=== PATIENT | female | born 1975 | race African-American/Black ===

== ENCOUNTER 2021-02-03 13:10 | Inpatient (IN) | payer OTHER ==
[2021-02-03 16:07] VITALS: BMI 22.7
[2021-02-03] MEDS ORDERED: MAGNESIUM HYDROX 2400MG/30ML ORAL SUSPENSION 30 ML CUP PO PRN (19:33)
[2021-02-03] MEDS ORDERED: MAG HYDROX/AL HYDROX/SIMETH 30 ML UNIT-DOSE CUP PO PRN (19:33)
[2021-02-03] MEDS ORDERED: hydrOXYzine PAMOATE 25 MG CAPSULE (FP) PO PRN (19:33)
[2021-02-03] MEDS ORDERED: ACETAMINOPHEN 325 MG TABLET (FP) PO PRN ×2 (19:33)
[2021-02-03] MEDS ORDERED: MAGNESIUM CITRATE 300 ML BOTTLE PO PRN (19:33)
[2021-02-03] MEDS ORDERED: BISMUTH SUBSALICYLATE 524 MG/30 ML PO PRN (19:33)
[2021-02-03] MEDS ORDERED: MENTHOL/PHENOL 1 EACH UD MM PRN (19:33)
[2021-02-03] MEDS ORDERED: ONDANSETRON *ODT* 4 MG TABLET SL PRN (19:33)
[2021-02-03] MEDS ORDERED: METHOCARBAMOL 500 MG TABLET PO PRN (19:33)
[2021-02-03] MEDS ORDERED: IBUPROFEN 400 MG TABLET (FP) PO PRN (19:33)
[2021-02-03] MEDS ORDERED: diazePAM 5 MG TABLET PO ONE (19:35)
[2021-02-03] MEDS ORDERED: METOPROLOL TARTRATE 25 MG TABLET (FP) PO ONE (19:35)
[2021-02-03] MEDS ORDERED: METOPROLOL TARTRATE 50 MG TABLET (FP) PO ONE (20:00)
[2021-02-03] MEDS: THIAMINE HCL 100 MG TABLET (FP) PO SCH (21:28)
[2021-02-03] MEDS: MELATONIN 5 MG TABLETS PO SCH (21:28)
[2021-02-03] MEDS: diazePAM 5 MG TABLET PO SCH (22:33)
[2021-02-04] MEDS: diazePAM 5 MG TABLET PO SCH ×4 (06:37→22:13)
[2021-02-04] MEDS: PANTOPRAZOLE 20 MG TABLET PO SCH (10:11)
[2021-02-04] MEDS: LISINOPRIL 20 MG TABLET PO SCH (10:11)
[2021-02-04] MEDS: HYDROCHLOROTHIAZIDE 25 MG TABLET (FP) PO SCH (10:12)
[2021-02-04] MEDS: PRENATAL VITAMINS W/ FOLIC ACID TABLET (FP) PO SCH (10:12)
[2021-02-04 12:43] LABS: HEMATOCRIT 37.2 % (32.4-45.2); MCH 38.2 pg (25.7-33.7); MEAN CELL VOLUME 109.3 fl (80-96); MEAN PLT VOLUME 10.2 fl (7.5-11.1); PLATELET COUNT 209 10^3/uL (134-434); RBC 3.41 M/mm3 (3.60-5.2); RDW 13.6 % (11.6-15.6)
[2021-02-04 13:10] LABS: ALBUMIN 3.8 g/dl (3.4-5.0); BLOOD UREA NITROGEN 14.4 mg/dL (7-18); CALCIUM 9.6 mg/dL (8.5-10.1)
[2021-02-04 13:13] LABS: CREATININE 0.8 mg/dL (0.55-1.3)
[2021-02-04 13:14] LABS: BILIRUBIN,TOTAL 3.2 mg/dL (0.2-1); TOT PROT 7.6 g/dl (6.4-8.2)
[2021-02-04] MEDS: diazePAM 5 MG TABLET PO PRN (15:35)
[2021-02-04] MEDS: THIAMINE HCL 100 MG TABLET (FP) PO SCH (22:13)
[2021-02-04] MEDS: MELATONIN 5 MG TABLETS PO SCH (22:13)
[2021-02-05] MEDS: diazePAM 5 MG TABLET PO SCH ×3 (05:20→22:12)
[2021-02-05] MEDS: PRENATAL VITAMINS W/ FOLIC ACID TABLET (FP) PO SCH (10:11)
[2021-02-05] MEDS: HYDROCHLOROTHIAZIDE 25 MG TABLET (FP) PO SCH (10:11)
[2021-02-05] MEDS: PANTOPRAZOLE 20 MG TABLET PO SCH (10:11)
[2021-02-05] MEDS: LISINOPRIL 20 MG TABLET PO SCH (10:11)
[2021-02-05] MEDS: diazePAM 5 MG TABLET PO PRN ×2 (10:12→18:15)
[2021-02-05] MEDS ORDERED: NICOTINE 10 MG CARTRIDGE (INHALER) IH PRN (11:51)
[2021-02-05] MEDS: THIAMINE HCL 100 MG TABLET (FP) PO SCH (22:12)
[2021-02-05] MEDS: MELATONIN 5 MG TABLETS PO SCH (22:13)
[2021-02-06] MEDS ORDERED: MASKS NR ONE (05:37)
[2021-02-06] MEDS ORDERED: diazePAM 5 MG TABLET PO SCH (06:00)
[2021-02-06 08:33] LABS: HEMATOCRIT 36.5 % (32.4-45.2); HEMOGLOBIN 12.6 GM/dL (10.7-15.3); MCH 38.1 pg (25.7-33.7); MCHC 34.7 g/dl (32.0-36.0); MEAN CELL VOLUME 109.9 fl (80-96); MEAN PLT VOLUME 10.7 fl (7.5-11.1); PLATELET COUNT 171 10^3/uL (134-434); RBC 3.32 M/mm3 (3.60-5.2); RDW 13.4 % (11.6-15.6); WHITE BLOOD COUNT 6.2 K/mm3 (4.0-10.0)
[2021-02-06 09:33] LABS: CALCIUM 9.7 mg/dL (8.5-10.1)
[2021-02-06 09:34] LABS: ALBUMIN 3.5 g/dl (3.4-5.0); BLOOD UREA NITROGEN 11.4 mg/dL (7-18)
[2021-02-06 09:37] LABS: CREATININE 0.5 mg/dL (0.55-1.3)
[2021-02-06 09:39] LABS: TOT PROT 7.2 g/dl (6.4-8.2)
[2021-02-06 09:47] VITALS: BP 100/77; PULSE 116; TEMP 96.8
[2021-02-06 09:53] LABS: BILIRUBIN,TOTAL 2.6 mg/dL (0.2-1)
[2021-02-07] MEDS ORDERED: diazePAM 5 MG TABLET PO ONE (06:00)
== END 2021-02-06 09:22 | disposition left against medical advice (07) | DRG 770 ==
LOC: YASAS 13:10 → Y3N 19:33
PROVIDERS: ADMIT Allergy & Immunology; ATTEND Allergy & Immunology
PROC: HZ2ZZZZ Detoxification Services for Substance Abuse Treatment (ICD-10-PCS; principal; 2021-02-03)
DX: F10.230 Alcohol dependence with withdrawal, uncomplicated (principal); F17.210 Nicotine dependence, cigarettes, uncomplicated; I10 Essential (primary) hypertension; R74.8 Abnormal levels of other serum enzymes
CPT/HCPCS: 36415; 80053; 81025; 85027; 86780; C9803; U0003; U0005

== ENCOUNTER 2021-04-03 21:59 | Inpatient (IN) | payer OTHER ==
[2021-04-03 18:10] VITALS: BMI 24.3
[2021-04-03] MEDS ORDERED: MAGNESIUM CITRATE 300 ML BOTTLE PO PRN (23:43)
[2021-04-03] MEDS ORDERED: guaiFENesin 200 MG/10 ML 10 ML UNIT-DOSE CUPS PO PRN (23:43)
[2021-04-03] MEDS ORDERED: NICOTINE 10 MG CARTRIDGE (INHALER) IH PRN (23:43)
[2021-04-03] MEDS ORDERED: IBUPROFEN 400 MG TABLET (FP) PO PRN (23:43)
[2021-04-03] MEDS ORDERED: LOPERAMIDE HCL 2 MG CAPSULE PO PRN (23:43)
[2021-04-03] MEDS ORDERED: NICOTINE 7 MG/24 HOURS TOPICAL PATCH TD PRN (23:43)
[2021-04-03] MEDS ORDERED: P-EPHED 60MG/TRIPROLIDI 2.5MG TABLET PO PRN (23:43)
[2021-04-03] MEDS ORDERED: MAGNESIUM HYDROX 2400MG/30ML ORAL SUSPENSION 30 ML CUP PO PRN (23:43)
[2021-04-03] MEDS ORDERED: ACETAMINOPHEN 325 MG TABLET (FP) PO PRN (23:43)
[2021-04-03] MEDS ORDERED: MAG HYDROX/AL HYDROX/SIMETH 30 ML UNIT-DOSE CUP PO PRN (23:43)
[2021-04-04] MEDS ORDERED: GABAPENTIN 300 MG CAPSULE PO PRN (00:07)
[2021-04-04] MEDS ORDERED: cloNIDine HCL 0.1 MG TABLET PO ONE (07:48)
[2021-04-04] MEDS: PRENATAL VITAMINS W/ FOLIC ACID TABLET (FP) PO SCH (10:33)
[2021-04-04] MEDS: LISINOPRIL 20 MG TABLET PO SCH (10:34)
[2021-04-04] MEDS: PANTOPRAZOLE 20 MG TABLET PO SCH (10:34)
[2021-04-04] MEDS: HYDROCHLOROTHIAZIDE 25 MG TABLET (FP) PO SCH (10:35)
[2021-04-04] MEDS ORDERED: FLU VACC QS2021-22(6MOS UP)/PF 60 MCG/0.5 ML SYRINGE IM ONE (13:00)
[2021-04-04 13:01] LABS: SYPHILIS W/ RPR CONF NON-REACTIVE (NONREACTIVE)
[2021-04-04] MEDS: GABAPENTIN 300 MG CAPSULE PO SCH (21:10)
[2021-04-04] MEDS: MELATONIN 5 MG TABLETS PO PRN (21:10)
[2021-04-04] MEDS: THIAMINE HCL 100 MG TABLET (FP) PO SCH (21:10)
[2021-04-05] MEDS: GABAPENTIN 300 MG CAPSULE PO SCH ×3 (06:50→21:30)
[2021-04-05] MEDS: PRENATAL VITAMINS W/ FOLIC ACID TABLET (FP) PO SCH (10:31)
[2021-04-05] MEDS: HYDROCHLOROTHIAZIDE 25 MG TABLET (FP) PO SCH (10:31)
[2021-04-05] MEDS: PANTOPRAZOLE 20 MG TABLET PO SCH (10:31)
[2021-04-05] MEDS: LISINOPRIL 20 MG TABLET PO SCH (10:31)
[2021-04-05] MEDS: THIAMINE HCL 100 MG TABLET (FP) PO SCH (21:30)
[2021-04-05] MEDS: MELATONIN 5 MG TABLETS PO PRN (21:30)
[2021-04-06] MEDS: GABAPENTIN 300 MG CAPSULE PO SCH ×3 (06:11→21:17)
[2021-04-06] MEDS: LISINOPRIL 20 MG TABLET PO SCH (10:26)
[2021-04-06] MEDS: HYDROCHLOROTHIAZIDE 25 MG TABLET (FP) PO SCH (10:26)
[2021-04-06] MEDS: PANTOPRAZOLE 20 MG TABLET PO SCH (10:26)
[2021-04-06] MEDS: PRENATAL VITAMINS W/ FOLIC ACID TABLET (FP) PO SCH (10:26)
[2021-04-06] MEDS: HYDROCORTISONE 1% TOPICAL CREAM 30 GM TUBE TP SCH ×2 (13:21→21:15)
[2021-04-06] MEDS: THIAMINE HCL 100 MG TABLET (FP) PO SCH (21:17)
[2021-04-06] MEDS: MELATONIN 5 MG TABLETS PO PRN (21:18)
[2021-04-07] MEDS: GABAPENTIN 300 MG CAPSULE PO SCH ×3 (06:42→21:08)
[2021-04-07 07:06] LABS: EPI CELLS 8 /uL (0-25.1); HYALINE CASTS 0 /uL (0-3.1); URINE APPEARANCE CLEAR; URINE BACTERIA 112 /uL (0-1359); URINE BILIRUBIN NEGATIVE (NEGATIVE); URINE COLOR YELLOW; URINE GLUCOSE (UA) NEGATIVE (NEGATIVE); URINE KETONE NEGATIVE (NEGATIVE); URINE LEUK ESTERASE 1+ (NEGATIVE); URINE NITRITE NEGATIVE (NEGATIVE); URINE PROTEIN NEGATIVE (NEGATIVE); URINE RBC 0 /uL (0-23.9); URINE UROBILINOGEN 0.2 mg/dL (0.2-1.0); URINE WBC 10 /uL (0-25.8)
[2021-04-07 10:35] LABS: BASO % 2.5 % (0-2.0); EOS % 2.5 % (0-4.5); HEMATOCRIT 32.9 % (32.4-45.2); HEMOGLOBIN 11.5 GM/dL (10.7-15.3); LYMPH % 21.8 % (8-40); MCH 37.7 pg (25.7-33.7); MCHC 35.1 g/dl (32.0-36.0); MEAN CELL VOLUME 107.3 fl (80-96); MEAN PLT VOLUME 9.3 fl (7.5-11.1); NEUT % 60.2 % (42.8-82.8); PLATELET COUNT 558 10^3/uL (134-434); RBC 3.06 M/mm3 (3.60-5.2); RDW 14.4 % (11.6-15.6); WHITE BLOOD COUNT 7.7 K/mm3 (4.0-10.0)
[2021-04-07] MEDS: HYDROCHLOROTHIAZIDE 25 MG TABLET (FP) PO SCH (10:43)
[2021-04-07] MEDS: HYDROCORTISONE 1% TOPICAL CREAM 30 GM TUBE TP SCH ×2 (10:44→21:08)
[2021-04-07] MEDS: PRENATAL VITAMINS W/ FOLIC ACID TABLET (FP) PO SCH (10:44)
[2021-04-07] MEDS: LISINOPRIL 20 MG TABLET PO SCH (10:44)
[2021-04-07] MEDS: PANTOPRAZOLE 20 MG TABLET PO SCH (10:45)
[2021-04-07 11:38] LABS: CALCIUM 9.5 mg/dL (8.5-10.1)
[2021-04-07 11:39] LABS: ALBUMIN 3.4 g/dl (3.4-5.0); BLOOD UREA NITROGEN 11.5 mg/dL (7-18)
[2021-04-07 11:42] LABS: CREATININE 0.5 mg/dL (0.55-1.3)
[2021-04-07 11:44] LABS: BILIRUBIN,TOTAL 1.3 mg/dL (0.2-1)
[2021-04-07 12:05] LABS: ANISOCYTOSIS 1+; MACROCYTOSIS 1+
[2021-04-07] MEDS: THIAMINE HCL 100 MG TABLET (FP) PO SCH (21:08)
[2021-04-07] MEDS: MELATONIN 5 MG TABLETS PO PRN (21:10)
[2021-04-08] MEDS: GABAPENTIN 300 MG CAPSULE PO SCH ×3 (06:26→21:08)
[2021-04-08] MEDS: HYDROCHLOROTHIAZIDE 25 MG TABLET (FP) PO SCH (10:44)
[2021-04-08] MEDS: HYDROCORTISONE 1% TOPICAL CREAM 30 GM TUBE TP SCH ×2 (10:44→21:08)
[2021-04-08] MEDS: PRENATAL VITAMINS W/ FOLIC ACID TABLET (FP) PO SCH (10:44)
[2021-04-08] MEDS: PANTOPRAZOLE 20 MG TABLET PO SCH (10:44)
[2021-04-08] MEDS: LISINOPRIL 20 MG TABLET PO SCH (10:44)
[2021-04-08] MEDS: THIAMINE HCL 100 MG TABLET (FP) PO SCH (21:08)
[2021-04-09] MEDS: GABAPENTIN 300 MG CAPSULE PO SCH ×3 (06:22→21:54)
[2021-04-09] MEDS: PRENATAL VITAMINS W/ FOLIC ACID TABLET (FP) PO SCH (10:50)
[2021-04-09] MEDS: PANTOPRAZOLE 20 MG TABLET PO SCH (10:51)
[2021-04-09] MEDS: HYDROCORTISONE 1% TOPICAL CREAM 30 GM TUBE TP SCH ×2 (10:51→21:58)
[2021-04-09] MEDS: LISINOPRIL 20 MG TABLET PO SCH (10:51)
[2021-04-09] MEDS: HYDROCHLOROTHIAZIDE 25 MG TABLET (FP) PO SCH (10:52)
[2021-04-09] MEDS: MELATONIN 5 MG TABLETS PO PRN (21:52)
[2021-04-09] MEDS: hydrOXYzine PAMOATE 25 MG CAPSULE (FP) PO PRN (21:54)
[2021-04-09] MEDS: THIAMINE HCL 100 MG TABLET (FP) PO SCH (21:54)
[2021-04-09] MEDS: traZODone HCL 50 MG TABLET (FP) PO SCH (21:54)
[2021-04-10] MEDS: GABAPENTIN 300 MG CAPSULE PO SCH ×3 (06:27→21:09)
[2021-04-10] MEDS: hydrOXYzine PAMOATE 25 MG CAPSULE (FP) PO PRN ×3 (06:29→21:09)
[2021-04-10] MEDS: HYDROCORTISONE 1% TOPICAL CREAM 30 GM TUBE TP SCH ×2 (10:18→21:10)
[2021-04-10] MEDS: PANTOPRAZOLE 20 MG TABLET PO SCH (10:18)
[2021-04-10] MEDS: HYDROCHLOROTHIAZIDE 25 MG TABLET (FP) PO SCH (10:18)
[2021-04-10] MEDS: PRENATAL VITAMINS W/ FOLIC ACID TABLET (FP) PO SCH (10:18)
[2021-04-10] MEDS: LISINOPRIL 20 MG TABLET PO SCH (10:18)
[2021-04-10 11:33] LABS: BASO % 1.2 % (0-2.0); HEMATOCRIT 33.3 % (32.4-45.2); HEMOGLOBIN 11.3 GM/dL (10.7-15.3); LYMPH % 27.9 % (8-40); MCH 37.1 pg (25.7-33.7); MCHC 33.9 g/dl (32.0-36.0); MEAN CELL VOLUME 109.6 fl (80-96); MEAN PLT VOLUME 9.2 fl (7.5-11.1); MONO % 9.8 % (3.8-10.2); NEUT % 58.1 % (42.8-82.8); PLATELET COUNT 666 10^3/uL (134-434); RBC 3.04 M/mm3 (3.60-5.2); RDW 14.7 % (11.6-15.6); WHITE BLOOD COUNT 8.7 K/mm3 (4.0-10.0)
[2021-04-10 11:50] LABS: ALBUMIN 3.5 g/dl (3.4-5.0); BILIRUBIN,DIRECT 0.4 mg/dL (0.0-0.2)
[2021-04-10 11:52] LABS: BILIRUBIN,TOTAL 0.6 mg/dL (0.2-1)
[2021-04-10] MEDS ORDERED: PT OWN MED DRAWER 7, Y5N ONE (12:27)
[2021-04-10 12:45] LABS: ANISOCYTOSIS 3+; MACROCYTOSIS 3+; PLATELET ESTIMATE INCREASED
[2021-04-10] MEDS: traZODone HCL 50 MG TABLET (FP) PO SCH (21:09)
[2021-04-10] MEDS: THIAMINE HCL 100 MG TABLET (FP) PO SCH (21:09)
[2021-04-10] MEDS: MELATONIN 5 MG TABLETS PO PRN (21:09)
[2021-04-11] MEDS: hydrOXYzine PAMOATE 25 MG CAPSULE (FP) PO PRN ×3 (06:51→21:44)
[2021-04-11] MEDS: GABAPENTIN 300 MG CAPSULE PO SCH ×3 (06:51→21:44)
[2021-04-11] MEDS: HYDROCHLOROTHIAZIDE 25 MG TABLET (FP) PO SCH (10:35)
[2021-04-11] MEDS: PANTOPRAZOLE 20 MG TABLET PO SCH (10:35)
[2021-04-11] MEDS: PRENATAL VITAMINS W/ FOLIC ACID TABLET (FP) PO SCH (10:35)
[2021-04-11] MEDS: LISINOPRIL 20 MG TABLET PO SCH (10:35)
[2021-04-11] MEDS: HYDROCORTISONE 1% TOPICAL CREAM 30 GM TUBE TP SCH ×2 (10:36→21:45)
[2021-04-11 15:19] LABS: PH,URINE 7.5 (5.0-8.0); URINE APPEARANCE CLEAR; URINE BILIRUBIN NEGATIVE (NEGATIVE); URINE COLOR YELLOW; URINE GLUCOSE (UA) NEGATIVE (NEGATIVE); URINE KETONE NEGATIVE (NEGATIVE); URINE LEUK ESTERASE NEGATIVE (NEGATIVE); URINE NITRITE NEGATIVE (NEGATIVE); URINE PROTEIN NEGATIVE (NEGATIVE)
[2021-04-11] MEDS: THIAMINE HCL 100 MG TABLET (FP) PO SCH (21:44)
[2021-04-11] MEDS: traZODone HCL 50 MG TABLET (FP) PO SCH (21:44)
[2021-04-11] MEDS: MELATONIN 5 MG TABLETS PO PRN (21:47)
[2021-04-12] MEDS: hydrOXYzine PAMOATE 25 MG CAPSULE (FP) PO PRN ×3 (06:33→21:46)
[2021-04-12] MEDS: GABAPENTIN 300 MG CAPSULE PO SCH ×3 (06:33→21:44)
[2021-04-12] MEDS: PANTOPRAZOLE 20 MG TABLET PO SCH (10:16)
[2021-04-12] MEDS: HYDROCORTISONE 1% TOPICAL CREAM 30 GM TUBE TP SCH ×2 (10:16→21:46)
[2021-04-12] MEDS: LISINOPRIL 20 MG TABLET PO SCH (10:16)
[2021-04-12] MEDS: PRENATAL VITAMINS W/ FOLIC ACID TABLET (FP) PO SCH (10:16)
[2021-04-12] MEDS: HYDROCHLOROTHIAZIDE 25 MG TABLET (FP) PO SCH (10:16)
[2021-04-12] MEDS: MELATONIN 5 MG TABLETS PO PRN (21:44)
[2021-04-12] MEDS: THIAMINE HCL 100 MG TABLET (FP) PO SCH (21:44)
[2021-04-12] MEDS: traZODone HCL 50 MG TABLET (FP) PO SCH (21:44)
[2021-04-13] MEDS: GABAPENTIN 300 MG CAPSULE PO SCH ×3 (06:22→21:51)
[2021-04-13] MEDS: hydrOXYzine PAMOATE 25 MG CAPSULE (FP) PO PRN ×3 (06:22→21:51)
[2021-04-13] MEDS: HYDROCORTISONE 1% TOPICAL CREAM 30 GM TUBE TP SCH (09:46)
[2021-04-13] MEDS: PANTOPRAZOLE 20 MG TABLET PO SCH (09:47)
[2021-04-13] MEDS: PRENATAL VITAMINS W/ FOLIC ACID TABLET (FP) PO SCH (09:47)
[2021-04-13] MEDS ORDERED: COLLOIDAL OATMEAL 1 BAR EACH TP PRN (11:59)
[2021-04-13] MEDS: HYDROCHLOROTHIAZIDE 25 MG TABLET (FP) PO SCH (12:28)
[2021-04-13] MEDS: LISINOPRIL 20 MG TABLET PO SCH (12:29)
[2021-04-13] MEDS: MINERAL OIL/PETROLAT/WATER TOPICAL CREAM 113 GM JAR TP SCH (16:01)
[2021-04-13] MEDS: traZODone HCL 50 MG TABLET (FP) PO SCH (21:51)
[2021-04-13] MEDS: THIAMINE HCL 100 MG TABLET (FP) PO SCH (21:51)
[2021-04-13] MEDS: MELATONIN 5 MG TABLETS PO PRN (21:52)
[2021-04-14] MEDS: hydrOXYzine PAMOATE 25 MG CAPSULE (FP) PO PRN ×3 (06:21→21:32)
[2021-04-14] MEDS: GABAPENTIN 300 MG CAPSULE PO SCH ×3 (06:21→21:32)
[2021-04-14] MEDS: LISINOPRIL 20 MG TABLET PO SCH (09:58)
[2021-04-14] MEDS: PRENATAL VITAMINS W/ FOLIC ACID TABLET (FP) PO SCH (09:58)
[2021-04-14] MEDS: PANTOPRAZOLE 20 MG TABLET PO SCH (09:58)
[2021-04-14] MEDS: MINERAL OIL/PETROLAT/WATER TOPICAL CREAM 113 GM JAR TP SCH (09:58)
[2021-04-14] MEDS: HYDROCHLOROTHIAZIDE 25 MG TABLET (FP) PO SCH (09:59)
[2021-04-14] MEDS: THIAMINE HCL 100 MG TABLET (FP) PO SCH (21:31)
[2021-04-14] MEDS: traZODone HCL 50 MG TABLET (FP) PO SCH (21:31)
[2021-04-14] MEDS: MELATONIN 5 MG TABLETS PO PRN (21:32)
[2021-04-15] MEDS: GABAPENTIN 300 MG CAPSULE PO SCH ×3 (06:19→21:44)
[2021-04-15] MEDS: hydrOXYzine PAMOATE 25 MG CAPSULE (FP) PO PRN ×3 (06:19→21:46)
[2021-04-15] MEDS: PANTOPRAZOLE 20 MG TABLET PO SCH (10:34)
[2021-04-15] MEDS: LISINOPRIL 20 MG TABLET PO SCH (10:34)
[2021-04-15] MEDS: HYDROCHLOROTHIAZIDE 25 MG TABLET (FP) PO SCH (10:34)
[2021-04-15] MEDS: MINERAL OIL/PETROLAT/WATER TOPICAL CREAM 113 GM JAR TP SCH (10:34)
[2021-04-15] MEDS: PRENATAL VITAMINS W/ FOLIC ACID TABLET (FP) PO SCH (10:34)
[2021-04-15] MEDS: THIAMINE HCL 100 MG TABLET (FP) PO SCH (21:44)
[2021-04-15] MEDS: MELATONIN 5 MG TABLETS PO PRN (21:45)
[2021-04-15] MEDS: traZODone HCL 100 MG TABLET (FP) PO SCH (21:45)
[2021-04-16] MEDS: hydrOXYzine PAMOATE 25 MG CAPSULE (FP) PO PRN ×3 (07:10→21:27)
[2021-04-16] MEDS: GABAPENTIN 300 MG CAPSULE PO SCH ×3 (07:10→21:25)
[2021-04-16] MEDS: PRENATAL VITAMINS W/ FOLIC ACID TABLET (FP) PO SCH (10:15)
[2021-04-16] MEDS: LISINOPRIL 20 MG TABLET PO SCH (10:15)
[2021-04-16] MEDS: HYDROCHLOROTHIAZIDE 25 MG TABLET (FP) PO SCH (10:15)
[2021-04-16] MEDS: PANTOPRAZOLE 20 MG TABLET PO SCH (10:15)
[2021-04-16] MEDS: MINERAL OIL/PETROLAT/WATER TOPICAL CREAM 113 GM JAR TP SCH (10:16)
[2021-04-16] MEDS: traZODone HCL 100 MG TABLET (FP) PO SCH (21:25)
[2021-04-16] MEDS: THIAMINE HCL 100 MG TABLET (FP) PO SCH (21:25)
[2021-04-16] MEDS: MELATONIN 5 MG TABLETS PO PRN (21:27)
[2021-04-17] MEDS: hydrOXYzine PAMOATE 25 MG CAPSULE (FP) PO PRN (06:23)
[2021-04-17] MEDS: GABAPENTIN 300 MG CAPSULE PO SCH (06:23)
[2021-04-17 07:35] VITALS: TEMP 97.4
[2021-04-17] MEDS: PANTOPRAZOLE 20 MG TABLET PO SCH (09:43)
[2021-04-17] MEDS: PRENATAL VITAMINS W/ FOLIC ACID TABLET (FP) PO SCH (09:43)
[2021-04-17] MEDS: HYDROCHLOROTHIAZIDE 25 MG TABLET (FP) PO SCH (09:43)
[2021-04-17] MEDS: LISINOPRIL 20 MG TABLET PO SCH (09:43)
[2021-04-17] MEDS: MINERAL OIL/PETROLAT/WATER TOPICAL CREAM 113 GM JAR TP SCH (09:44)
[2021-04-17 10:58] VITALS: BP 126/86; PULSE 104
== END 2021-04-17 10:30 | disposition home or self-care (01) | DRG 772 ==
LOC: YASAS 21:59 → Y5N 23:46
PROVIDERS: ADMIT Allergy & Immunology; ATTEND Allergy & Immunology
PROC: HZ42ZZZ Group Counseling for Substance Abuse Treatment, Cognitive-Behavioral (ICD-10-PCS; principal; 2021-04-03)
DX: F10.20 Alcohol dependence, uncomplicated (principal); F17.210 Nicotine dependence, cigarettes, uncomplicated; F10.282 Alcohol dependence with alcohol-induced sleep disorder; I10 Essential (primary) hypertension; K21.9 Gastro-esophageal reflux disease without esophagitis; R21 Rash and other nonspecific skin eruption; R82.998 Other abnormal findings in urine; R74.01 Elevation of levels of liver transaminase levels
CPT/HCPCS: 36415; 80053; 80076; 81003; 81025; 85025; 86780; 86803; 87811; 90686; 93005; 93010; C9803; G0008; J0735; U0003; U0005